=== PATIENT | female | born 1965 | race Caucasian/White ===

== ENCOUNTER → 2016-11-26 | Outpatient (CLI) | payer BC ==
--- NOTE | 2016-11-26 15:07 | MAMMOGRAPHY REPORT ---
BILATERAL DIGITAL SCREENING MAMMOGRAM TOMOSYNTHESIS WITH CAD: 11/26/2016 CLINICAL HISTORY: Patient presents for routine screening. S/P bilateral augmentation. TECHNIQUE: Breast tomosynthesis in addition to standard 2D mammography was performed. Current study was also evaluated with a Computer Aided Detection (CAD) system. Tomosynthesis images were obtaine d of the implant displaced views only. COMPARISON: Comparison is made to exams dated: 11/21/2015 mammogram, 08/17/2014 mammogram, 07/28/2013 mammogram, 07/05/2012 mammogram, 12/31/2011 mammogram, and 05/27/2011 mammogram - [facility]. BREAST COMPOSITION: There are scattered areas of fibroglandular density in both breasts. FINDINGS: No suspicious masses, calcifications, or areas of architectural distortion are noted in e ither breast. There has been no significant interval change compared to prior exams. Bilateral subp ectoral saline implants are stable in appearance. Scattered bilateral benign-appearing calcificatio ns are not significantly changed. Left breast masses/asymmetries are stable. IMPRESSION: ACR BI-RADS CATEGORY 2: BENIGN There is no mammographic evidence of malignancy. A 1 year screening mammogram is recommended. The p atient will receive written notification of the results. Approximately 10% of breast cancers are not detected with mammography. A negative mammographic repor t should not delay biopsy if a clinically suggestive mass is present. Carolina Lerma M.D. /:11/26/2016 14:07:08 Heating Fixture Tender: Fabienne Esteves, [facility] letter sent: Normal 1/2 BI-RADS Code: ACR BI-RADS Category 2: Benign
== END | disposition home or self-care (01) ==
LOC: C.MAMM 08:06
PROVIDERS: ATTEND Obstetrics & Gynecology
DX: Z12.31 Encounter for screening mammogram for malignant neoplasm of breast (principal)

== ENCOUNTER → 2016-12-09 | Outpatient (CLI) | payer BC ==
--- NOTE | 2016-12-09 14:16 | DIAGNOSTIC IMAGING REPORT ---
RIGHT FOOT 3 VIEWS CLINICAL HISTORY: Right foot pain. FINDINGS: 3 views of the right foot are obtained. No prior studies are available for comparison at the time of dictation. The skeletal structures are well mineralized. No fracture is seen. Arthritic change with bony sclerosis, mild overgrowth, and mild joint space narrowing is seen at the first metatarsophalangeal joint. The joint spaces of the foot are otherwise well-maintained. Minimal degenerative spurring is seen along the dorsal aspect of the tarsal bones. The overlying soft tissues are within normal limits. IMPRESSION: 1. No acute bony abnormality is identified in the right foot. 2. 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 Electronically signed by: Claudio Mensah M.D. 12/09/2016 2:15 PM Dictated Date/Time: 12/09/2016 2:13 PM
== END | disposition home or self-care (01) ==
LOC: C.RDSM 13:32
PROVIDERS: ATTEND Internal Medicine
DX: M79.676 Pain in unspecified toe(s) (principal); M19.071 Primary osteoarthritis, right ankle and foot

== ENCOUNTER → 2017-01-19 | Outpatient (CLI) | payer BC | END | disposition home or self-care (01) | LOC: C.PAPS 16:14 | PROVIDERS: ATTEND Obstetrics & Gynecology | DX: Z01.419 Encounter for gynecological examination (general) (routine) without abnormal findings (principal) ==

== ENCOUNTER → 2017-11-30 | Outpatient (CLI) | payer OTHER, BC ==
--- NOTE | 2017-12-02 08:02 | MAMMOGRAPHY REPORT ---
BILATERAL DIGITAL SCREENING MAMMOGRAM TOMOSYNTHESIS WITH CAD: 11/30/2017 CLINICAL HISTORY: Patient presents for routine screening. S/P bilateral augmentation. TECHNIQUE: Bilateral CC and MLO views of the breasts with and without implant displacement views were obtained. Tomosynthesis was also performed on the implant displaced views. Current study was also evaluated with a Computer Aided Detection (CAD) system. COMPARISON: Comparison is made to exams dated: 11/26/2016 mammogram, 11/21/2015 mammogram, 08/17/2014 m ammogram, 07/28/2013 mammogram, 07/05/2012 mammogram, and 05/27/2011 mammogram - [facility]. BREAST COMPOSITION: There are scattered areas of fibroglandular density in both breasts. FINDINGS: Bilateral subpectoral saline implants are intact. There are slightly prominent lymph nodes projecting over the superior left pectoralis muscle on the MLO view, which appears similar to multip le prior mammograms dating back to at least 2010, likely within the range of normal given long-term s tability. An 8 mm focal asymmetry in the upper outer left breast is also unchanged dating back to at least 2010, therefore considered benign. There is stable nodularity in the medial left breast as we ll. No new suspicious mass, architectural distortion or cluster of microcalcifications is seen. IMPRESSION: ACR BI-RADS CATEGORY 1: NEGATIVE There is no mammographic evidence of malignancy. A 1 year screening mammogram is recommended. The pa tient will receive written notification of the results. Approximately 10% of breast cancers are not detected with mammography. A negative mammographic report should not delay biopsy if a clinically suggestive mass is present. Ayesha Loza M.D. ay/:12/01/2017 17:26:29 Float Phlebotomist: Fabienne SANTOS(Carlitos)(Tiffanie), [facility] letter sent: Normal /2 BI-RADS Code: ACR BI-RADS Category 1: Negative
== END | disposition home or self-care (01) ==
LOC: C.MAMM 09:21
PROVIDERS: ATTEND Obstetrics & Gynecology
DX: Z12.31 Encounter for screening mammogram for malignant neoplasm of breast (principal); Z98.82 Breast implant status